=== PATIENT | male | born 1965 | race African-American/Black ===

== ENCOUNTER 2018-06-25 08:44 | Inpatient (IN) | payer OTHER ==
[2018-06-25 09:28] VITALS: BMI 29.3
--- NOTE | 2018-06-25 11:58 | HP ---
CIWA Score - CIWA Score Nausea/Vomitin Muscle Tremors: 2 Anxiety: 2 Agitation: 2 Paroxysmal Sweats: 1-Minimal Palms Moist Orientation: 0-Oriented Tacttile Disturbances: 1-Very Mild Itch/Numbness Auditory Disturbances: 1-Very Mild Visual Disturbances: 1-Very Mild Sensitivity Headache: 2-Mild CIWA-Ar Total Score: 14 Admission ROS BHS - HPI Chief Complaint: i need help to stop drinking alcohol and cocaine Allergies/Adverse Reactions: Allergies Allergy/AdvReac Type Severity Reaction Status Date / Time No Known Drug Allergies Allergy Verified 06/25/18 10:33 History of Present Illness: this 53 years old male with alcohol and cocaine dependence seeking detox, withdrawal symptom,last detox 20 years history of type 2 dm non compliance nicotine dependence history of black out no significant period of sobriety history of depression Exam Limitations: No Limitations - Ebola screening Have you traveled outside of the country in the last 21 days: No Have you had contact with anyone from an Ebola affected area: No Have you been sick,other than usual withdrawal symptoms: No Do you have a fever: No - Review of Systems Constitutional: Loss of Appetite, Malaise, Night Sweats, Changes in sleep, Weakness EENT: reports: Nose Congestion Respiratory: reports: No Symptoms reported Cardiac: reports: No Symptoms Reported GI: reports: Nausea, Poor Appetite, Abdominal cramping : reports: No Symptoms Reported Musculoskeletal: reports: Back Pain, Muscle Pain Integumentary: reports: Dryness Neuro: reports: Headache, Tremors Endocrine: reports: No Symptoms Reported Psychiatric: reports: No Sypmtoms Reported, Judgement Intact, Orientated x3 Patient History - Patient Medical History Hx Anemia: No Hx Asthma: No Hx Chronic Obstructive Pulmonary Disease (COPD): No Hx Cardiac Disorders: No Hx Hypertension: No Hx Seizures: No Hx Diabetes: Yes (F/S 137, metformin 500mg BID noncompliant) Hx Gastrointestinal Disorders: No Hx Genitourinary Disorders: No Hx Sexually Transmitted Disorders: No Hx Renal Disease (ESRD): No Hx Depression: Yes (Sertraline 50 mg daily non compliant) Hx Suicide Attempt: No Hx Bipolar Disorder: No Hx Schizophrenia: No Other Medical History: no suicidal,no homicidal - Patient Surgical History Past Surgical History: Yes Hx Neurologic Surgery: No Hx Cataract Extraction: No Hx Cardiac Surgery: No Hx Lung Surgery: No Hx Breast Surgery: No Hx Breast Biopsy: No Hx Abdominal Surgery: Yes (henial repair at 10 years old) Hx Appendectomy: No Hx Cholecystectomy: No Hx Genitourinary Surgery: No Hx Section: No Hx Orthopedic Surgery: No Other Surgical History: head laceration in 2002 Anesthesia Reaction: No - PPD History Previous Implant?: Yes Documented Results: Negative w/o proof Implanted On Prior [facility] Admission?: No PPD to be Administered?: Yes - Smoking Cessation Smoking history: Current every day smoker Have you smoked in the past 12 months: Yes Aproximately how many cigarettes per day: 10 Cigars Per Day: 0 Hx Chewing Tobacco Use: No Initiated information on smoking cessation: Yes 'Breaking Loose' booklet given: 06/25/18 - Substance & Tx. History Hx Alcohol Use: Yes Substance Use Type: Alcohol, Cocaine Hx Substance Use Treatment: Yes (20 years ago) - Substances Abused Alcohol Route: Oral Frequency: Daily Amount used: 4 24oz cans of beer Age of first use: 9 Date of Last Use: 06/24/18 Cocaine Route: Inhalation Frequency: 1-3 times last 30 days Amount used: 3 bags Age of first use: 28 Date of Last Use: 06/21/18 Family Disease History - Family Disease History Family History: Denies Admission Physical Exam BHS - Vital Signs Vital Signs: Vital Signs - 24 hr 06/25/18 09:25 Temperature 97 F L Pulse Rate 75 Respiratory 18 Rate Blood Pressure 131/75 - Physical General Appearance: Yes: Moderate Distress, Tremorous, Irritable, Anxious HEENTM: Yes: HARRY, Pharynx Normal Respiratory: Yes: Within Normal Limits, Lungs Clear, Normal Breath Sounds Neck: Yes: Within Normal Limits, Supple, Trachea in good position Breast: Yes: Within Normal Limits Cardiology: Yes: Regular Rhythm, Regular Rate, S1, S2, Edema Abdominal: Yes: Normal Bowel Sounds, Non Tender, Flat, Soft Genitourinary: Yes: Within Normal Limits Back: Yes: Muscle Spasm Musculoskeletal: Yes: Back pain, Muscle Pain Extremities: Yes: Tremors, Other (pain in the right shoulder injury 2 months prior) 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 II-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 NML intact, Fully Oriented, Alert, Motor Strength 5/5 Integumentary: Yes: Dry Lymphatic: Yes: Within Normal Limits - Diagnostic (1) Alcohol dependence with uncomplicated withdrawal Current Visit: Yes Status: Acute (2) Cocaine dependence Current Visit: Yes Status: Acute (3) DM2 (diabetes mellitus, type 2) Current Visit: Yes Status: Acute (4) Nicotine dependence Current Visit: Yes Status: Acute (5) Depression Current Visit: Yes Status: Acute Cleared for Admission [facility] - Detox or Rehab [facility] Level of Care: Medically Managed Detox Regimen/Protocol: Librium BHS Breath Alcohol Content Breath Alcohol Content: 0 Urine Drug Screen - Results Drug Screen Negative: No Urine Drug Screen Results: BREE-Cocaine, BAR-Barbiturates
[2018-06-25] MEDS ORDERED: NICOTINE POLACRILEX 2 MG GUM BUC PRN (12:10)
[2018-06-25] MEDS ORDERED: LOPERAMIDE HCL 2 MG CAPSULE PO PRN (12:10)
[2018-06-25] MEDS ORDERED: guaiFENesin/D-METHORPHAN HB 10 ML UNIT-DOSE CUPS PO PRN (12:10)
[2018-06-25] MEDS ORDERED: P-EPHED 60MG/TRIPROLIDI 2.5MG TABLET PO PRN (12:10)
[2018-06-25] MEDS ORDERED: MAGNESIUM CITRATE 300 ML BOTTLE PO PRN (12:10)
[2018-06-25] MEDS ORDERED: MAGNESIUM HYDROX 2400MG/30ML ORAL SUSPENSION 30 ML CUP PO PRN (12:10)
[2018-06-25] MEDS ORDERED: MAG HYDROX/AL HYDROX/SIMETH 30 ML UNIT-DOSE CUP PO PRN (12:10)
[2018-06-25] MEDS ORDERED: MENTHOL/PHENOL 1 EACH UD MM PRN (12:10)
[2018-06-25] MEDS ORDERED: chlordiazePOXIDE HCL 25 MG CAPSULE PO PRN (12:10)
[2018-06-25] MEDS ORDERED: hydrOXYzine PAMOATE 50 MG CAPSULE (FP) PO PRN (12:10)
[2018-06-25] MEDS: NICOTINE 21 MG/24 HOURS TOPICAL PATCH TD SCH (13:02)
--- NOTE | 2018-06-25 15:38 | EKG ---
Test Reason : Blood Pressure : / mmHG Vent. Rate : 079 BPM Atrial Rate : 079 BPM P-R Int : 106 ms QRS Dur : 088 ms QT Int : 384 ms P-R-T Axes : 065 056 014 degrees QTc Int : 440 ms SINUS RHYTHM WITH SHORT SC MINIMAL VOLTAGE CRITERIA FOR LVH, MAY BE NORMAL VARIANT BORDERLINE ECG NO PREVIOUS ECGS AVAILABLE Confirmed by CROW WIGGINS MD ([id number]) on 06/25/2018 3:38:19 PM Referred By: Confirmed By:CROW WIGGINS MD
[2018-06-25] MEDS: metFORMIN HCL 500 MG TABLET (FP) PO SCH (16:40)
[2018-06-25] MEDS: chlordiazePOXIDE HCL 25 MG CAPSULE PO SCH ×2 (17:45→22:48)
[2018-06-25] MEDS: IBUPROFEN 400 MG TABLET (FP) PO PRN (17:45)
[2018-06-25 19:27] LABS: URINE APPEARANCE TURBID; URINE BILIRUBIN NEGATIVE (<2.0 mg/dL); URINE COLOR YELLOW; URINE GLUCOSE (UA) 1+ (NEGATIVE); URINE KETONE NEGATIVE (NEGATIVE); URINE LEUK ESTERASE NEGATIVE (NEGATIVE); URINE NITRITE NEGATIVE (NEGATIVE); URINE PROTEIN NEGATIVE (NEGATIVE); URINE UROBILINOGEN 4.0 E.U/dl mg/dL (0.2-1.0)
[2018-06-25] MEDS ORDERED: MELATONIN 5 MG TABLETS PO PRN (22:00)
[2018-06-25] MEDS: THIAMINE HCL 100 MG TABLET (FP) PO SCH (22:48)
[2018-06-26] MEDS: chlordiazePOXIDE HCL 25 MG CAPSULE PO SCH ×4 (05:19→22:41)
[2018-06-26] MEDS: metFORMIN HCL 500 MG TABLET (FP) PO SCH ×2 (06:08→16:40)
--- NOTE | 2018-06-26 07:48 | CONSULT ---
[facility] Psychiatric Consult - Data Date of interview: 06/26/18 Admission source: [facility] Identifying data: This is a 36 yo male, single, unemployed, domiciled, [place], with history of Cocaine, Alcohol and Nicotine dependence is here seeking detox reporting withdrawal symptoms. Patient reports no psychiatric hospitalization history. Denies suicidal, homicidal history. Substance Abuse History: - Smoking Cessation. Smoking history: Current every day smoker. Have you smoked in the past 12 months: Yes. Aproximately how many cigarettes per day: 10. Cigars Per Day: 0. Hx Chewing Tobacco Use: No. Initiated information on smoking cessation: Yes. 'Breaking Loose' booklet given : 06/25/18. - Substance & Tx. History. Hx Alcohol Use: Yes. Substance Use Type: Alcohol, Cocaine. Hx Substance Use Treatment: Yes (20 years ago). - Substances Abused. Alcohol. Route: Oral. Frequency: Daily. Amount used: 4 24oz cans of beer. Age of first use: 9. Date of Last Use: 06/24/18. Cocaine. Route: Inhalation. Frequency: 1-3 times last 30 days. Amount used: 3 bags. Age of first use: 28. Date of Last Use: 06/21/18 Medical History: DM-II, Psychiatric History: Patient reports history of depression and anxiety, reports taking prior to admission: Zoloft 50mg po qhs. Seroquel 100mg po qhs. Patient refusing to restart Zoloft. Denies psychiatric hospitalization history , denies suicidal, homicidal history as well. Physical/Sexual Abuse/Trauma History: Denies Additional Comment: Seroquel 100mg po qhs Mental Status Exam - Mental Status Exam Alert and Oriented to: Place, Person Cognitive Function: Fair Patient Appearance: Unkempt Mood: Sad Affect: Flat Patient Behavior: Cooperative Speech Pattern: Delayed Voice Loudness: Mildly Soft/Quiet Thought Process: Goal Oriented Thought Disorder: Being Controlled Hallucinations: Denies Suicidal Ideation: Denies Homicidal Ideation: Denies Insight/Judgement: Fair Sleep: Difficulty falling asleep Appetite: Fair Muscle strength/Tone: Normal Gait/Station: Shuffling Additional Comments: Seroquel 100mg po qhs Psychiatric Findings - Problem List ([place] 1, 2,3) (1) Alcohol dependence with uncomplicated withdrawal Current Visit: Yes Status: Acute (2) Cocaine dependence Current Visit: Yes Status: Acute (3) Nicotine dependence Current Visit: Yes Status: Acute (4) DM2 (diabetes mellitus, type 2) Current Visit: Yes Status: Acute - Initial Treatment Plan Initial Treatment Plan: Seroquel 100mg po qhs
[2018-06-26 10:24] LABS: HEMATOCRIT 45.9 % (35.4-49); HEMOGLOBIN 14.8 GM/dL (11.7-16.9); MCH 31.1 pg (25.7-33.7); MCHC 32.2 g/dl (32.0-35.9); MEAN CELL VOLUME 96.4 fl (80-96); MEAN PLT VOLUME 7.2 fl (7.5-11.1); PLATELET COUNT 279 K/MM3 (134-434); RBC 4.76 M/mm3 (4.00-5.60); RDW 13.8 % (11.9-15.9); WHITE BLOOD COUNT 6.1 K/mm3 (4.0-10.0)
[2018-06-26] MEDS: PRENATAL VITAMINS W/ FOLIC ACID TABLET (FP) PO SCH (10:28)
[2018-06-26 10:29] LABS: ALK PHOS 83 U/L (45-117); ANION GAP 10 MMOL/L (8-16); BILIRUBIN,TOTAL 0.5 mg/dL (0.2-1); BLOOD UREA NITROGEN 21 mg/dL (7-18); CALCIUM 9.1 mg/dL (8.5-10.1); CHLORIDE 105 mmol/L (98-107); CO2 26 mmol/L (21-32); CREATININE 1.2 mg/dL (0.55-1.3); GLUCOSE,RANDOM 124 mg/dL (74-106); POTASSIUM 4.1 mmol/L (3.5-5.1); SGOT/AST 25 U/L (15-37); SGPT/ALT 34 U/L (13-61); SODIUM 140 mmol/L (136-145); TOT PROT 7.1 g/dl (6.4-8.2)
[2018-06-26] MEDS: IBUPROFEN 400 MG TABLET (FP) PO PRN ×2 (10:30→17:47)
[2018-06-26] MEDS: NICOTINE 21 MG/24 HOURS TOPICAL PATCH TD SCH (10:32)
[2018-06-26] MEDS ORDERED: FLU VACCINE QUAD 60 MCG/0.5 ML (MDV 18-19) IM ONE (12:00)
--- NOTE | 2018-06-26 12:09 | PN ---
S CIWA - CIWA Score Nausea/Vomitin Muscle Tremors: 4-Moderate,w/Arms Extend Anxiety: 4-Mod. Anxious/Guarded Agitation: 3 Paroxysmal Sweats: 3 Orientation: 0-Oriented Tacttile Disturbances: 1-Very Mild Itch/Numbness Auditory Disturbances: 0-None Visual Disturbances: 0-None Headache: 0-None Present CIWA-Ar Total Score: 17 BHS Progress Note (SOAP) Subjective: Sweating, interrupted sleep Objective: 06/26/18 12:04 Last Vital Signs Temp Pulse Resp BP Pulse Ox 99.3 F 78 18 112/75 06/26/18 09:28 06/26/18 09:28 06/26/18 09:28 06/26/18 09:28 Laboratory Tests 06/25/18 06/25/18 06/25/18 10:56 16:17 19:05 WBC RBC Hgb Hct MCV MCH MCHC RDW Plt Count MPV Sodium Potassium Chloride Carbon Dioxide Anion Gap BUN Creatinine Creat Clearance w eGFR POC Glucometer 137 123 Random Glucose Calcium Total Bilirubin AST ALT Alkaline Phosphatase Total Protein Albumin Urine Color Yellow Urine Appearance Turbid Urine pH 5.0 Ur Specific [place] 1.027 Urine Protein Negative Urine Glucose (UA) 1+ H Urine Ketones Negative Urine Blood Negative Urine Nitrite Negative Urine Bilirubin Negative Urine Urobilinogen 4.0 e.u/dl Ur Leukocyte Esterase Negative RPR Titer 06/26/18 06/26/18 06/26/18 05:19 06:00 06:00 WBC 6.1 RBC 4.76 Hgb 14.8 Hct 45.9 MCV 96.4 H MCH 31.1 MCHC 32.2 RDW 13.8 Plt Count 279 MPV 7.2 L Sodium 140 Potassium 4.1 Chloride 105 Carbon Dioxide 26 Anion Gap 10 BUN 21 H Creatinine 1.2 Creat Clearance w eGFR > 60 POC Glucometer 109 Random Glucose 124 H Calcium 9.1 Total Bilirubin 0.5 AST 25 ALT 34 Alkaline Phosphatase 83 Total Protein 7.1 Albumin 4.0 Urine Color Urine Appearance Urine pH Ur Specific [place] Urine Protein Urine Glucose (UA) Urine Ketones Urine Blood Urine Nitrite Urine Bilirubin Urine Urobilinogen Ur Leukocyte Esterase RPR Titer 06/26/18 06:00 WBC RBC Hgb Hct MCV MCH MCHC RDW Plt Count MPV Sodium Potassium Chloride Carbon Dioxide Anion Gap BUN Creatinine Creat Clearance w eGFR POC Glucometer Random Glucose Calcium Total Bilirubin AST ALT Alkaline Phosphatase Total Protein Albumin Urine Color Urine Appearance Urine pH Ur Specific [place] Urine Protein Urine Glucose (UA) Urine Ketones Urine Blood Urine Nitrite Urine Bilirubin Urine Urobilinogen Ur Leukocyte Esterase RPR Titer Nonreactive Labs reviewed: bun 21, serum glucose 124, abnormal ua Assessment: 06/26/18 12:06 Withdrawal symptoms Noted with hyperglycemia, azotemia and abnormal UA Plan: Continue detox Hyperglycemia due to DMT2: continue present regimen Azotemia: encouraged PO water intake Abnormal UA: repeat UA
[2018-06-26] MEDS: ACETAMINOPHEN 325 MG TABLET (FP) PO PRN (12:44)
[2018-06-26] MEDS ORDERED: QUEtiapine FUMARATE 100 MG TABLET (FP) PO SCH (22:00)
[2018-06-26] MEDS: QUEtiapine FUMARATE 100 MG TABLET (FP) PO SCH (22:40)
[2018-06-26] MEDS: THIAMINE HCL 100 MG TABLET (FP) PO SCH (22:41)
[2018-06-27] MEDS: chlordiazePOXIDE HCL 25 MG CAPSULE PO SCH ×2 (05:52→10:25)
[2018-06-27] MEDS: ACETAMINOPHEN 325 MG TABLET (FP) PO PRN (05:54)
[2018-06-27] MEDS: metFORMIN HCL 500 MG TABLET (FP) PO SCH ×2 (06:07→17:46)
[2018-06-27] MEDS: NICOTINE 21 MG/24 HOURS TOPICAL PATCH TD SCH (10:25)
[2018-06-27] MEDS: PRENATAL VITAMINS W/ FOLIC ACID TABLET (FP) PO SCH (10:25)
--- NOTE | 2018-06-27 14:07 | PN ---
S CIWA - CIWA Score Nausea/Vomitin Muscle Tremors: 3 Anxiety: 3 Agitation: 3 Paroxysmal Sweats: 2 Orientation: 0-Oriented Tacttile Disturbances: 0-None Auditory Disturbances: 0-None Visual Disturbances: 0-None Headache: 1-Very Mild CIWA-Ar Total Score: 14 S Progress Note (SOAP) Subjective: Interrupted sleep, joint pain, anxious Objective: 06/27/18 14:06 Last Vital Signs Temp Pulse Resp BP Pulse Ox 97.3 F L 80 18 115/64 06/27/18 09:52 06/27/18 09:52 06/27/18 09:52 06/27/18 09:52 Laboratory Tests 06/25/18 06/25/18 06/25/18 10:56 16:17 19:05 WBC RBC Hgb Hct MCV MCH MCHC RDW Plt Count MPV Sodium Potassium Chloride Carbon Dioxide Anion Gap BUN Creatinine Creat Clearance w eGFR POC Glucometer 137 123 Random Glucose Calcium Total Bilirubin AST ALT Alkaline Phosphatase Total Protein Albumin Urine Color Yellow Urine Appearance Turbid Urine pH 5.0 Ur Specific [place] 1.027 Urine Protein Negative Urine Glucose (UA) 1+ H Urine Ketones Negative Urine Blood Negative Urine Nitrite Negative Urine Bilirubin Negative Urine Urobilinogen 4.0 e.u/dl Ur Leukocyte Esterase Negative RPR Titer 06/26/18 06/26/18 06/26/18 05:19 06:00 06:00 WBC 6.1 RBC 4.76 Hgb 14.8 Hct 45.9 MCV 96.4 H MCH 31.1 MCHC 32.2 RDW 13.8 Plt Count 279 MPV 7.2 L Sodium 140 Potassium 4.1 Chloride 105 Carbon Dioxide 26 Anion Gap 10 BUN 21 H Creatinine 1.2 Creat Clearance w eGFR > 60 POC Glucometer 109 Random Glucose 124 H Calcium 9.1 Total Bilirubin 0.5 AST 25 ALT 34 Alkaline Phosphatase 83 Total Protein 7.1 Albumin 4.0 Urine Color Urine Appearance Urine pH Ur Specific [place] Urine Protein Urine Glucose (UA) Urine Ketones Urine Blood Urine Nitrite Urine Bilirubin Urine Urobilinogen Ur Leukocyte Esterase RPR Titer 06/26/18 06/26/18 06/27/18 06:00 16:54 05:52 WBC RBC Hgb Hct MCV MCH MCHC RDW Plt Count MPV Sodium Potassium Chloride Carbon Dioxide Anion Gap BUN Creatinine Creat Clearance w eGFR POC Glucometer 90 99 Random Glucose Calcium Total Bilirubin AST ALT Alkaline Phosphatase Total Protein Albumin Urine Color Urine Appearance Urine pH Ur Specific [place] Urine Protein Urine Glucose (UA) Urine Ketones Urine Blood Urine Nitrite Urine Bilirubin Urine Urobilinogen Ur Leukocyte Esterase RPR Titer Nonreactive Labs reviewed Assessment: 06/27/18 14:07 Withdrawal symptoms Plan: Continue detox Encouraged PO water intake Follow up on repeated UA result
[2018-06-27 16:22] LABS: URINE APPEARANCE CLEAR; URINE BILIRUBIN NEGATIVE (<2.0 mg/dL); URINE COLOR LTYELLOW; URINE GLUCOSE (UA) NEGATIVE (NEGATIVE); URINE KETONE NEGATIVE (NEGATIVE); URINE LEUK ESTERASE NEGATIVE (NEGATIVE); URINE NITRITE NEGATIVE (NEGATIVE); URINE PROTEIN NEGATIVE (NEGATIVE); URINE UROBILINOGEN NEGATIVE mg/dL (0.2-1.0)
[2018-06-27] MEDS: chlordiazePOXIDE 5 MG CAPSULE PO SCH ×2 (17:46→23:27)
[2018-06-27] MEDS: QUEtiapine FUMARATE 100 MG TABLET (FP) PO SCH (23:26)
[2018-06-27] MEDS: THIAMINE HCL 100 MG TABLET (FP) PO SCH (23:27)
[2018-06-28] MEDS: chlordiazePOXIDE 5 MG CAPSULE PO SCH ×2 (05:34→10:38)
[2018-06-28] MEDS: IBUPROFEN 400 MG TABLET (FP) PO PRN ×2 (06:10→17:33)
[2018-06-28] MEDS: metFORMIN HCL 500 MG TABLET (FP) PO SCH ×2 (07:43→17:30)
--- NOTE | 2018-06-28 10:10 | PN ---
[facility] Progress Note Note: Vital Signs Temperature 96.6 F L 06/28/18 09:14 Pulse Rate 97 H 06/28/18 09:14 Respiratory Rate 16 06/28/18 09:14 Blood Pressure 113/79 06/28/18 09:14 O2 Sat by Pulse Oximetry (%) Laboratory Last Values WBC 6.1 K/mm3 (4.0-10.0) 06/26/18 06:00 RBC 4.76 M/mm3 (4.00-5.60) 06/26/18 06:00 Hgb 14.8 GM/dL (11.7-16.9) 06/26/18 06:00 Hct 45.9 % (35.4-49) 06/26/18 06:00 MCV 96.4 fl (80-96) H 06/26/18 06:00 MCH 31.1 pg (25.7-33.7) 06/26/18 06:00 MCHC 32.2 g/dl (32.0-35.9) 06/26/18 06:00 RDW 13.8 % (11.9-15.9) 06/26/18 06:00 Plt Count 279 K/MM3 (134-434) 06/26/18 06:00 MPV 7.2 fl (7.5-11.1) L 06/26/18 06:00 Sodium 140 mmol/L (136-145) 06/26/18 06:00 Potassium 4.1 mmol/L (3.5-5.1) 06/26/18 06:00 Chloride 105 mmol/L (98-107) 06/26/18 06:00 Carbon Dioxide 26 mmol/L (21-32) 06/26/18 06:00 Anion Gap 10 MMOL/L (8-16) 06/26/18 06:00 BUN 21 mg/dL (7-18) H 06/26/18 06:00 Creatinine 1.2 mg/dL (0.55-1.3) 06/26/18 06:00 Creat Clearance w eGFR > 60 (>60) 06/26/18 06:00 POC Glucometer 110 UNITS (80-120) 06/28/18 05:33 Random Glucose 124 mg/dL (74-106) H 06/26/18 06:00 Calcium 9.1 mg/dL (8.5-10.1) 06/26/18 06:00 Total Bilirubin 0.5 mg/dL (0.2-1) 06/26/18 06:00 AST 25 U/L (15-37) 06/26/18 06:00 ALT 34 U/L (13-61) 06/26/18 06:00 Alkaline Phosphatase 83 U/L (45-117) 06/26/18 06:00 Total Protein 7.1 g/dl (6.4-8.2) 06/26/18 06:00 Albumin 4.0 g/dl (3.4-5.0) 06/26/18 06:00 Urine Color Ltyellow 06/27/18 11:20 Urine Appearance Clear 06/27/18 11:20 Urine pH 8.0 (5.0-8.0) D 06/27/18 11:20 Ur Specific [place] 1.021 (1.010-1.035) 06/27/18 11:20 Urine Protein Negative (NEGATIVE) 06/27/18 11:20 Urine Glucose (UA) Negative (NEGATIVE) 06/27/18 11:20 Urine Ketones Negative (NEGATIVE) 06/27/18 11:20 Urine Blood Negative (NEGATIVE) 06/27/18 11:20 Urine Nitrite Negative (NEGATIVE) 06/27/18 11:20 Urine Bilirubin Negative (<2.0 mg/dL) 06/27/18 11:20 Urine Urobilinogen Negative mg/dL (0.2-1.0) 06/27/18 11:20 Ur Leukocyte Esterase Negative (NEGATIVE) 06/27/18 11:20 RPR Titer Nonreactive (NONREACTIVE) 06/26/18 06:00 c/o anxious, right shoulder pain (chronic), body aches Aox3, no distress full ROM, + right shoulder pain, no joint erythema or edema , ambulatory skin intact withdrawal sx continue detox TP bengay Right shoulder, follow up with PCP upon discharge d/c in AM
[2018-06-28] MEDS: PRENATAL VITAMINS W/ FOLIC ACID TABLET (FP) PO SCH (10:37)
[2018-06-28] MEDS: NICOTINE 21 MG/24 HOURS TOPICAL PATCH TD SCH (10:37)
[2018-06-28] MEDS: METHYL SALICYLATE/MENTHOL OINT 30 GM TUBE TP SCH ×2 (14:36→22:48)
[2018-06-28] MEDS: chlordiazePOXIDE HCL 10 MG CAPSULE PO SCH ×2 (17:31→22:49)
[2018-06-28] MEDS: QUEtiapine FUMARATE 100 MG TABLET (FP) PO SCH (22:48)
[2018-06-28] MEDS: THIAMINE HCL 100 MG TABLET (FP) PO SCH (22:48)
[2018-06-28] MEDS: ACETAMINOPHEN 325 MG TABLET (FP) PO PRN (22:49)
[2018-06-29] MEDS: chlordiazePOXIDE HCL 10 MG CAPSULE PO SCH ×2 (06:32→10:30)
[2018-06-29] MEDS: metFORMIN HCL 500 MG TABLET (FP) PO SCH ×2 (06:33→17:51)
[2018-06-29] MEDS: IBUPROFEN 400 MG TABLET (FP) PO PRN (06:49)
[2018-06-29] MEDS: METHYL SALICYLATE/MENTHOL OINT 30 GM TUBE TP SCH ×2 (10:30→22:56)
[2018-06-29] MEDS: PRENATAL VITAMINS W/ FOLIC ACID TABLET (FP) PO SCH (10:30)
[2018-06-29] MEDS: NICOTINE 21 MG/24 HOURS TOPICAL PATCH TD SCH (10:30)
--- NOTE | 2018-06-29 17:16 | PN ---
S Progress Note (SOAP) Subjective: Anxious, interrupted sleep. Patient requested to cancel discharge today as [facility]. Objective: 06/29/18 17:15 Last Vital Signs Temp Pulse Resp BP Pulse Ox 97.8 F 91 H 20 144/83 06/29/18 13:43 06/29/18 13:43 06/29/18 13:43 06/29/18 13:43 Laboratory Tests 06/25/18 06/25/18 06/25/18 10:56 16:17 19:05 WBC RBC Hgb Hct MCV MCH MCHC RDW Plt Count MPV Sodium Potassium Chloride Carbon Dioxide Anion Gap BUN Creatinine Creat Clearance w eGFR POC Glucometer 137 123 Random Glucose Calcium Total Bilirubin AST ALT Alkaline Phosphatase Total Protein Albumin Urine Color Yellow Urine Appearance Turbid Urine pH 5.0 Ur Specific [place] 1.027 Urine Protein Negative Urine Glucose (UA) 1+ H Urine Ketones Negative Urine Blood Negative Urine Nitrite Negative Urine Bilirubin Negative Urine Urobilinogen 4.0 e.u/dl Ur Leukocyte Esterase Negative RPR Titer 06/26/18 06/26/18 06/26/18 05:19 06:00 06:00 WBC 6.1 RBC 4.76 Hgb 14.8 Hct 45.9 MCV 96.4 H MCH 31.1 MCHC 32.2 RDW 13.8 Plt Count 279 MPV 7.2 L Sodium 140 Potassium 4.1 Chloride 105 Carbon Dioxide 26 Anion Gap 10 BUN 21 H Creatinine 1.2 Creat Clearance w eGFR > 60 POC Glucometer 109 Random Glucose 124 H Calcium 9.1 Total Bilirubin 0.5 AST 25 ALT 34 Alkaline Phosphatase 83 Total Protein 7.1 Albumin 4.0 Urine Color Urine Appearance Urine pH Ur Specific [place] Urine Protein Urine Glucose (UA) Urine Ketones Urine Blood Urine Nitrite Urine Bilirubin Urine Urobilinogen Ur Leukocyte Esterase RPR Titer 06/26/18 06/26/18 06/27/18 06:00 16:54 05:52 WBC RBC Hgb Hct MCV MCH MCHC RDW Plt Count MPV Sodium Potassium Chloride Carbon Dioxide Anion Gap BUN Creatinine Creat Clearance w eGFR POC Glucometer 90 99 Random Glucose Calcium Total Bilirubin AST ALT Alkaline Phosphatase Total Protein Albumin Urine Color Urine Appearance Urine pH Ur Specific [place] Urine Protein Urine Glucose (UA) Urine Ketones Urine Blood Urine Nitrite Urine Bilirubin Urine Urobilinogen Ur Leukocyte Esterase RPR Titer Nonreactive 06/27/18 06/27/18 06/28/18 11:20 16:28 05:33 WBC RBC Hgb Hct MCV MCH MCHC RDW Plt Count MPV Sodium Potassium Chloride Carbon Dioxide Anion Gap BUN Creatinine Creat Clearance w eGFR POC Glucometer 106 110 Random Glucose Calcium Total Bilirubin AST ALT Alkaline Phosphatase Total Protein Albumin Urine Color Ltyellow Urine Appearance Clear Urine pH 8.0 D Ur Specific [place] 1.021 Urine Protein Negative Urine Glucose (UA) Negative Urine Ketones Negative Urine Blood Negative Urine Nitrite Negative Urine Bilirubin Negative Urine Urobilinogen Negative Ur Leukocyte Esterase Negative RPR Titer 06/28/18 06/29/18 16:38 05:53 WBC RBC Hgb Hct MCV MCH MCHC RDW Plt Count MPV Sodium Potassium Chloride Carbon Dioxide Anion Gap BUN Creatinine Creat Clearance w eGFR POC Glucometer 143 112 Random Glucose Calcium Total Bilirubin AST ALT Alkaline Phosphatase Total Protein Albumin Urine Color Urine Appearance Urine pH Ur Specific [place] Urine Protein Urine Glucose (UA) Urine Ketones Urine Blood Urine Nitrite Urine Bilirubin Urine Urobilinogen Ur Leukocyte Esterase RPR Titer Labs reviewed Assessment: 06/29/18 17:16 Withdrawal symptoms Plan: Continue detox Encouraged PO water intake
[2018-06-29] MEDS: QUEtiapine FUMARATE 100 MG TABLET (FP) PO SCH (22:56)
[2018-06-29] MEDS: THIAMINE HCL 100 MG TABLET (FP) PO SCH (22:56)
[2018-06-30] MEDS: metFORMIN HCL 500 MG TABLET (FP) PO SCH ×2 (06:53→18:03)
[2018-06-30] MEDS: PRENATAL VITAMINS W/ FOLIC ACID TABLET (FP) PO SCH (10:40)
[2018-06-30] MEDS: NICOTINE 21 MG/24 HOURS TOPICAL PATCH TD SCH (10:41)
[2018-06-30] MEDS: METHYL SALICYLATE/MENTHOL OINT 30 GM TUBE TP SCH (10:41)
--- NOTE | 2018-06-30 14:23 | PN ---
S Progress Note (SOAP) Subjective: Interrupted sleep Objective: 06/30/18 14:20 Last Vital Signs Temp Pulse Resp BP Pulse Ox 98.1 F 79 18 120/73 06/30/18 13:28 06/30/18 13:28 06/30/18 13:28 06/30/18 13:28 Laboratory Tests 06/25/18 06/25/18 06/25/18 10:56 16:17 19:05 WBC RBC Hgb Hct MCV MCH MCHC RDW Plt Count MPV Sodium Potassium Chloride Carbon Dioxide Anion Gap BUN Creatinine Creat Clearance w eGFR POC Glucometer 137 123 Random Glucose Calcium Total Bilirubin AST ALT Alkaline Phosphatase Total Protein Albumin Urine Color Yellow Urine Appearance Turbid Urine pH 5.0 Ur Specific [place] 1.027 Urine Protein Negative Urine Glucose (UA) 1+ H Urine Ketones Negative Urine Blood Negative Urine Nitrite Negative Urine Bilirubin Negative Urine Urobilinogen 4.0 e.u/dl Ur Leukocyte Esterase Negative RPR Titer 06/26/18 06/26/18 06/26/18 05:19 06:00 06:00 WBC 6.1 RBC 4.76 Hgb 14.8 Hct 45.9 MCV 96.4 H MCH 31.1 MCHC 32.2 RDW 13.8 Plt Count 279 MPV 7.2 L Sodium 140 Potassium 4.1 Chloride 105 Carbon Dioxide 26 Anion Gap 10 BUN 21 H Creatinine 1.2 Creat Clearance w eGFR > 60 POC Glucometer 109 Random Glucose 124 H Calcium 9.1 Total Bilirubin 0.5 AST 25 ALT 34 Alkaline Phosphatase 83 Total Protein 7.1 Albumin 4.0 Urine Color Urine Appearance Urine pH Ur Specific [place] Urine Protein Urine Glucose (UA) Urine Ketones Urine Blood Urine Nitrite Urine Bilirubin Urine Urobilinogen Ur Leukocyte Esterase RPR Titer 06/26/18 06/26/18 06/27/18 06:00 16:54 05:52 WBC RBC Hgb Hct MCV MCH MCHC RDW Plt Count MPV Sodium Potassium Chloride Carbon Dioxide Anion Gap BUN Creatinine Creat Clearance w eGFR POC Glucometer 90 99 Random Glucose Calcium Total Bilirubin AST ALT Alkaline Phosphatase Total Protein Albumin Urine Color Urine Appearance Urine pH Ur Specific [place] Urine Protein Urine Glucose (UA) Urine Ketones Urine Blood Urine Nitrite Urine Bilirubin Urine Urobilinogen Ur Leukocyte Esterase RPR Titer Nonreactive 06/27/18 06/27/18 06/28/18 11:20 16:28 05:33 WBC RBC Hgb Hct MCV MCH MCHC RDW Plt Count MPV Sodium Potassium Chloride Carbon Dioxide Anion Gap BUN Creatinine Creat Clearance w eGFR POC Glucometer 106 110 Random Glucose Calcium Total Bilirubin AST ALT Alkaline Phosphatase Total Protein Albumin Urine Color Ltyellow Urine Appearance Clear Urine pH 8.0 D Ur Specific [place] 1.021 Urine Protein Negative Urine Glucose (UA) Negative Urine Ketones Negative Urine Blood Negative Urine Nitrite Negative Urine Bilirubin Negative Urine Urobilinogen Negative Ur Leukocyte Esterase Negative RPR Titer 06/28/18 06/29/18 06/29/18 16:38 05:53 17:51 WBC RBC Hgb Hct MCV MCH MCHC RDW Plt Count MPV Sodium Potassium Chloride Carbon Dioxide Anion Gap BUN Creatinine Creat Clearance w eGFR POC Glucometer 143 112 177 Random Glucose Calcium Total Bilirubin AST ALT Alkaline Phosphatase Total Protein Albumin Urine Color Urine Appearance Urine pH Ur Specific [place] Urine Protein Urine Glucose (UA) Urine Ketones Urine Blood Urine Nitrite Urine Bilirubin Urine Urobilinogen Ur Leukocyte Esterase RPR Titer 06/30/18 05:54 WBC RBC Hgb Hct MCV MCH MCHC RDW Plt Count MPV Sodium Potassium Chloride Carbon Dioxide Anion Gap BUN Creatinine Creat Clearance w eGFR POC Glucometer 97 Random Glucose Calcium Total Bilirubin AST ALT Alkaline Phosphatase Total Protein Albumin Urine Color Urine Appearance Urine pH Ur Specific [place] Urine Protein Urine Glucose (UA) Urine Ketones Urine Blood Urine Nitrite Urine Bilirubin Urine Urobilinogen Ur Leukocyte Esterase RPR Titer Labs reviewed Assessment: 06/30/18 14:21 Withdrawal symptoms Plan: Continue detox Encouraged PO water intake
[2018-06-30 18:14] VITALS: BP 146/86; PULSE 71; TEMP 98.2
--- NOTE | 2018-06-30 18:52 | DS ---
[facility] Detox Discharge Summary Admission Date: 06/25/18 Discharge Date: 06/30/18 - History Present History: Alcohol Dependence, Cocaine Dependence Pertinent Past History: Hx alcohol use disorder since age 9. Cocaine use disorder since age 28. - Physical Exam Results Vital Signs: Vital Signs Temperature 98.2 F 06/30/18 18:13 Pulse Rate 71 06/30/18 18:13 Respiratory Rate 18 06/30/18 18:13 Blood Pressure 146/86 06/30/18 18:13 O2 Sat by Pulse Oximetry (%) Pertinent Admission Physical Exam Findings: Admitted for symptoms of alcohol withdrawal. Current diabetes mellitus w/ medication management needs. Laboratory Last Values WBC 6.1 K/mm3 (4.0-10.0) 06/26/18 06:00 RBC 4.76 M/mm3 (4.00-5.60) 06/26/18 06:00 Hgb 14.8 GM/dL (11.7-16.9) 06/26/18 06:00 Hct 45.9 % (35.4-49) 06/26/18 06:00 MCV 96.4 fl (80-96) H 06/26/18 06:00 MCH 31.1 pg (25.7-33.7) 06/26/18 06:00 MCHC 32.2 g/dl (32.0-35.9) 06/26/18 06:00 RDW 13.8 % (11.9-15.9) 06/26/18 06:00 Plt Count 279 K/MM3 (134-434) 06/26/18 06:00 MPV 7.2 fl (7.5-11.1) L 06/26/18 06:00 Sodium 140 mmol/L (136-145) 06/26/18 06:00 Potassium 4.1 mmol/L (3.5-5.1) 06/26/18 06:00 Chloride 105 mmol/L (98-107) 06/26/18 06:00 Carbon Dioxide 26 mmol/L (21-32) 06/26/18 06:00 Anion Gap 10 MMOL/L (8-16) 06/26/18 06:00 BUN 21 mg/dL (7-18) H 06/26/18 06:00 Creatinine 1.2 mg/dL (0.55-1.3) 06/26/18 06:00 Creat Clearance w eGFR > 60 (>60) 06/26/18 06:00 POC Glucometer 109 UNITS (80-120) 06/30/18 16:24 Random Glucose 124 mg/dL (74-106) H 06/26/18 06:00 Calcium 9.1 mg/dL (8.5-10.1) 06/26/18 06:00 Total Bilirubin 0.5 mg/dL (0.2-1) 06/26/18 06:00 AST 25 U/L (15-37) 06/26/18 06:00 ALT 34 U/L (13-61) 06/26/18 06:00 Alkaline Phosphatase 83 U/L (45-117) 06/26/18 06:00 Total Protein 7.1 g/dl (6.4-8.2) 06/26/18 06:00 Albumin 4.0 g/dl (3.4-5.0) 06/26/18 06:00 Urine Color Ltyellow 06/27/18 11:20 Urine Appearance Clear 06/27/18 11:20 Urine pH 8.0 (5.0-8.0) D 06/27/18 11:20 Ur Specific [place] 1.021 (1.010-1.035) 06/27/18 11:20 Urine Protein Negative (NEGATIVE) 06/27/18 11:20 Urine Glucose (UA) Negative (NEGATIVE) 06/27/18 11:20 Urine Ketones Negative (NEGATIVE) 06/27/18 11:20 Urine Blood Negative (NEGATIVE) 06/27/18 11:20 Urine Nitrite Negative (NEGATIVE) 06/27/18 11:20 Urine Bilirubin Negative (<2.0 mg/dL) 06/27/18 11:20 Urine Urobilinogen Negative mg/dL (0.2-1.0) 06/27/18 11:20 Ur Leukocyte Esterase Negative (NEGATIVE) 06/27/18 11:20 RPR Titer Nonreactive (NONREACTIVE) 06/26/18 06:00 labs reviewed. - Treatment Hospital Course: Detox Protocol Followed, Detoxed Safely, Responded well, Discharged Condition Good - Medication Discharge Medications: Ambulatory Orders Metformin HCl [Glucophage] 500 mg PO BID 06/25/18 Sertraline HCl [Zoloft -] 50 mg PO DAILY 06/25/18 Quetiapine Fumarate [Seroquel] 100 tab PO HS #30 tablet 06/26/18 - AMA Did Patient Leave Against Medical Advice: No
== END 2018-06-30 19:03 | disposition home or self-care (01) | DRG 774 ==
LOC: YASAS 08:44 → Y3N 11:50
PROC: HZ2ZZZZ Detoxification Services for Substance Abuse Treatment (ICD-10-PCS; principal; 2018-06-25)
DX: F10.230 Alcohol dependence with withdrawal, uncomplicated (principal); F14.20 Cocaine dependence, uncomplicated; F17.213 Nicotine dependence, cigarettes, with withdrawal; F32.9 Major depressive disorder, single episode, unspecified; E11.65 Type 2 diabetes mellitus with hyperglycemia; R79.89 Other specified abnormal findings of blood chemistry; R82.90 Unspecified abnormal findings in urine; M25.511 Pain in right shoulder; Z91.14 Patient's other noncompliance with medication regimen; Z79.84 Long term (current) use of oral hypoglycemic drugs
CPT/HCPCS: 36415; 80053; 81003; 82962; 85027; 86593; 90688; 93005; 93010; G0008